=== PATIENT | male | born 1965 | race Caucasian/White ===

== ENCOUNTER → 2018-05-07 | Outpatient (CLI) | payer BC ==
[~2018-05-07] MED LIST: CALCIUM CARBONATE PO; PRILOSEC 20MG20 MG PO
== END ==
LOC: COL.RAD 14:45
DX: H93.11 Tinnitus, right ear (principal); J34.89 Other specified disorders of nose and nasal sinuses
CPT/HCPCS: A9585

== ENCOUNTER 2019-03-11 10:35 | Day surgery (SDC) | payer BC ==
[2019-03-11] VITALS (8 sets, daily range): BP systolic 120–149; BP diastolic 82–92; PULSE 84–95; TEMP 98.2–98.9
[~2019-03-11] VITALS: Ht 175.3 cm; Wt 96.1 kg
[2019-03-11] MEDS ORDERED: PRIL40 PO (11:15)
--- NOTE | 2019-03-11 15:00 | NUR ---
Patient returns to room 1 per cart from PACU accompanied by Margaux VARGAS and arouses to verbal stimuli. Lopez set dressing dry on the incisional sites x4. IV fluids of LR infusing #20G LH. Denies pain or nausea. Siderails up x2 and call light in reach. Spouse at bedside. Allowed to rest.
[2019-03-11] MEDS ORDERED: MOTRIN 600600 MG/TAB PO (15:07)
[2019-03-11] MEDS ORDERED: NORCO 325 MG-51 TAB PO (15:07)
[2019-03-11] MEDS ORDERED: TYLENOL 325MG325 MG PO (15:08)
--- NOTE | 2019-03-11 15:15 | NUR ---
More awake and taking sips of water. States that he feels dizzy and allowed to rest.
--- NOTE | 2019-03-11 15:30 | NUR ---
Resting with eyes closed and spouse in room.
--- NOTE | 2019-03-11 15:45 | NUR ---
Resting and sipping on Sprite. Spouse remains in the room.
--- NOTE | 2019-03-11 16:00 | NUR ---
Arouses easily to verbal stimuli. Taking sips of Sprite and water.
--- NOTE | 2019-03-11 16:30 | NUR ---
Eating toast and is more awake. Denies pain or nausea.
--- NOTE | 2019-03-11 16:47 | NUR ---
Patient ambulatory to the bathroom but is unable to urinate. Ambulates in the hallway. Returns to room and sits on the edge of the cart and is drinking water.
--- NOTE | 2019-03-11 17:08 | NUR ---
Continues to drink water. Bladder scan done with 283ml.
--- NOTE | 2019-03-11 17:15 | NUR ---
Dr. Stoner notified that the patient was unable to urinate. May discharge to home and return to the ER if unable to urinate. Patient and spouse both verbalize understanding of this. IV discontinued and patient dresses self.
--- NOTE | 2019-03-11 17:21 | NUR ---
Given dismissal instructions and voices understanding of these. Provided script for [place] and written instructions.
--- NOTE | 2019-03-11 17:24 | NUR ---
Patient dismissed to home driven by spouse and taken to the front door per wheelchair by Carlos VARGAS and assisted into car.
== END 2019-03-11 17:24 | disposition home or self-care (01) ==
LOC: SDCO 10:35
DX: K80.10 Calculus of gallbladder with chronic cholecystitis without obstruction (principal); E66.9 Obesity, unspecified; K21.9 Gastro-esophageal reflux disease without esophagitis; Z79.899 Other long term (current) drug therapy; F32.9 Major depressive disorder, single episode, unspecified
CPT/HCPCS: J1100; J1885; J2405; J2704; J2710; J3010; J7120; Q9967

== ENCOUNTER 2019-07-19 13:37 | Emergency (ER) | payer BC ==
[~2019-07-19] VITALS: Ht 175.3 cm; Wt 94.1 kg
[~2019-07-19 13:37] MED LIST changes: +MOTRIN 600600 MG/TAB PO; +NORCO 325 MG-51 TAB PO; +PRIL40 PO; +TYLENOL 325MG325 MG PO
[2019-07-19 14:03] VITALS: TEMP 100.6
[2019-07-19 14:09] LABS: BASO % 0.2 % (0.0-2.0); EOS % 0.2 % (0-4.0); GRAN # 8.7 (1.4-6.5); HEMATOCRIT 41.9 % (42.0-52.0); HEMOGLOBIN 14.4 g/dl (13.5-18.0); LYMPH # 0.9 (1.2-3.4); LYMPH % 8.4 % (20.0-51.0); MEAN CELL VOLUME 92 fl (80.0-100.0); MEAN CORPUSCULAR HEMOGLOBIN 32 pg (27.0-31.0); MEAN CORPUSCULAR HGB CONC 34 g/dl (33.0-37.0); MEAN PLATELET VOLUME 9.7 fl (7.4-10.4); MONO # 0.6 (0.1-0.6); MONO % 5.6 % (1.7-9.3); PLATELET COUNT 241 K/mm3 (130-400); RED BLOOD COUNT 4.55 M/mm3 (4.20-5.60); REDCELL DISTRIBUTION WIDTH-CV 12.9 % (11.5-14.5)
[2019-07-19 14:14] LABS: INR 1.1 (0.8-3.0); PROTHROMBIN TIME 12.5 SECONDS (9.7-12.8)
[2019-07-19 14:21] LABS: ALBUMIN 3.9 gm/dL (3.5-5.0); BILIRUBIN,TOTAL 0.7 mg/dL (0.0-1.0); CALCIUM 9.1 mg/dL (8.4-10.2); CREATININE, serum 0.82 (0.66-1.25); POTASSIUM 3.5 mmol/L (3.4-5.0); TOTAL PROTEIN 7.4 gm/dL (6.4-8.2)
[2019-07-19 14:31] LABS: C-REACTIVE PROTEIN 14.3 mg/dL (0.0-0.9)
[2019-07-19 14:50] LABS: COLLECTION METHOD CLEAN CATCH
[2019-07-19 14:55] LABS: PH 6 (5-8); SQUAMOUS EPITHELIAL None Seen /hpf; URINE APPEARANCE Clear; URINE BACTERIA Rare /hpf; URINE BILIRUBIN Negative (NEGATIVE); URINE BLOOD 3+ (NEGATIVE); URINE COLOR Straw; URINE GLUCOSE Negative (NEGATIVE); URINE KETONE Negative (NEGATIVE); URINE LEUKOCYTE ESTERASE 1+ (NEGATIVE); URINE NITRATE Negative (NEGATIVE); URINE PROTEIN(semi-quant) Negative (NEGATIVE); URINE RBC None Seen /hpf; URINE UROBILINOGEN Negative (NEGATIVE)
[2019-07-19 16:04] VITALS: BP 125/80; PULSE 93
== END 2019-07-19 15:55 | disposition home or self-care (01) ==
LOC: COL.ER 13:37
PROVIDERS: Nurse Practitioner
DX: R31.9 Hematuria, unspecified (principal); K21.9 Gastro-esophageal reflux disease without esophagitis; Z79.899 Other long term (current) drug therapy; Z88.5 Allergy status to narcotic agent